=== PATIENT | female | born 1965 | race Two or more races ===

== ENCOUNTER 2017-04-12 21:06 | Inpatient (IN) | payer MEDICAID ==
[~2017-04-12] VITALS: Ht 157.5 cm; Wt 67.1 kg
[2017-04-12] MEDS ORDERED: METFORMIN HCL500 M1 ORAL (21:11)
[2017-04-12] MEDS ORDERED: Naproxen 500mg tab ORAL ONE (21:15)
--- NOTE | 2017-04-12 21:19 | Emergency Room Report ---
History of Present Illness General Chief Complaint: Fever Source: Patient Present Illness HPI Patient presents with fever chills body aches began at 1 PM. She also has a cough. She has not looked at her phlegm. She has chest pain when she is coughing. She is a headache at this time. There is no neck stiffness. She denies any vomiting or diarrhea. She does feel nauseated. The patient hasn't taken anything because she is allergic to Advil and Tylenol. She states that her face swells up when she takes Tylenol and Advil. She has had upper respiratory infections in the past. She is uncertain if she' s had pneumonia. No palpitations, vomiting, diarrhea, dysuria, abdominal pain, shortness of breath, depression, visual changes. Allergies: Coded Allergies: ACETAMINOPHEN (Verified Allergy, Unknown, 04/12/17) IBUPROFEN (Verified Allergy, Unknown, 04/12/17) Uncoded Allergies: PENICILLIN (Allergy, Unknown, 04/12/17) Patient History Past Medical History: see triage record Social History: Denies: smoking Social History Narrative at home Now: No Reviewed Nursing Documentation: PMH: Agreed, PSxH: Agreed Nursing Documentation-PMH Hx Asthma: Yes Hx Diabetes: Yes Review of Systems All Other Systems: negative except mentioned in HPI Physical Exam Vital Signs Date Time Temp Pulse Resp B/P Pulse Ox O2 Delivery O2 Flow Rate FiO2 04/12/17 21:04 103.3 158 16 157/78 96 Room Air Sp02 EP Interpretation: reviewed, normal General Appearance: no apparent distress, GCS 15, non-toxic, other - Hot Head: normocephalic Eyes: bilateral eye PERRL, bilateral eye normal inspection ENT: moist mucus membranes Neck: supple Respiratory: lungs clear, normal breath sounds Cardiovascular #1: regular rate, rhythm Cardiovascular #2: 2+ radial (R) Gastrointestinal: normal inspection, normal bowel sounds, non tender, no mass, non-distended Musculoskeletal: back normal, gait/station normal, normal range of motion Neurologic: alert, oriented x3, grossly normal Psychiatric: mood/affect normal Skin: other - plethoric and hot Medical Decision Making Diagnostic Impression: Primary Impression: Pneumonia Qualified Codes: J18.1 - Lobar pneumonia, unspecified organism Additional Impression: Diabetes Qualified Codes: E11.8 - Type 2 diabetes mellitus with unspecified complications ER Course Patient presents with fever and cough. Differential includes pneumonia, bronchitis, viral syndrome amongst others. Her lungs are clear at this time anteriorly. The beginning IV hydration. In addition to that she states she is allergic to Advil and Tylenol we will give her Naprosyn. Labs with leukocytosis and elevated glucose with normal lactic acid. The patient is somewhat improved at this time however she still tachycardic. X- ray reveals left lower lobe infiltrate. Antibiotics are begun. Glucose still high after bolus - insulin given. Patient improved and admitted med to Dr. Carey. Laboratory Tests Test 04/12/17 21:15 04/12/17 22:40 04/12/17 23:30 04/13/17 09:55 White Blood Count 14.2 K/UL (4.8-10.8) H 15.7 K/UL (4.8-10.8) H Red Blood Count 5.59 M/UL (4.20-5.40) H 4.59 M/UL (4.20-5.40) Hemoglobin 15.9 G/DL (12.0-16.0) 13.3 G/DL (12.0-16.0) Hematocrit 46.3 % (37.0-47.0) 37.6 % (37.0-47.0) Mean Corpuscular Volume 83 FL (80-99) 82 FL (80-99) Mean Corpuscular Hemoglobin 28.4 PG (27.0-31.0) 28.9 PG (27.0-31.0) Mean Corpuscular Hemoglobin Concent 34.3 G/DL (32.0-36.0) 35.3 G/DL (32.0-36.0) Red Cell Distribution Width 11.4 % (11.6-14.8) L 11.2 % (11.6-14.8) L Platelet Count 263 K/UL (150-450) 195 K/UL (150-450) Mean Platelet Volume 6.9 FL (6.5-10.1) 6.7 FL (6.5-10.1) Neutrophils (%) (Auto) 90.7 % (45.0-75.0) H 79.5 % (45.0-75.0) H Lymphocytes (%) (Auto) 5.1 % (20.0-45.0) L 14.8 % (20.0-45.0) L Monocytes (%) (Auto) 2.9 % (1.0-10.0) 4.6 % (1.0-10.0) Eosinophils (%) (Auto) 0.8 % (0.0-3.0) 0.5 % (0.0-3.0) Basophils (%) (Auto) 0.6 % (0.0-2.0) 0.6 % (0.0-2.0) Prothrombin Time 9.7 SEC (9.30-11.50) Prothrombin Time INR 0.9 (0.9-1.1) PTT 28 SEC (23-33) Sodium Level 134 mEQ/L (135-145) L Potassium Level 3.6 mEQ/L (3.4-4.9) Chloride Level 91 mEQ/L (98-107) L Carbon Dioxide Level 27 mEQ/L (20-30) Anion Gap 16 (5-15) H Blood Urea Nitrogen 15 mg/dL (7-23) Creatinine 0.7 mg/dL (0.5-0.9) Estimate Glomerular Filtration Rate > 60 mL/min (>60) Glucose Level 389 mg/dL (74-106) H Calcium Level 10.1 mg/dL (8.6-10.2) Total Bilirubin 0.5 mg/dL (0.0-1.2) Aspartate Amino Transferase (AST) 14 U/L (5-40) Alanine Aminotransferase (ALT) 20 U/L (3-33) Alkaline Phosphatase 113 U/L (35-104) H Total Creatine Kinase 63 U/L (26-140) Pro-B-Type Natriuretic Peptide 35 pg/mL (0-125) Total Protein 7.8 g/dL (6.6-8.7) Albumin 4.5 g/dL (3.5-5.2) Globulin 3.3 g/dL Albumin/Globulin Ratio 1.3 (1.0-2.7) Lactic Acid Level 1.00 mmol/L (0.66-2.22) Urine Color Yellow Urine Appearance Clear Urine pH 6 (4.5-8.0) Urine Specific [place] 1.010 (1.005-1.035) Urine Protein Negative (NEGATIVE) Urine Glucose (UA) 4+ (NEGATIVE) H Urine Ketones 2+ (NEGATIVE) H Urine Occult Blood Negative (NEGATIVE) Urine Nitrite Negative (NEGATIVE) Urine Bilirubin Negative (NEGATIVE) Urine Urobilinogen Normal MG/DL (0.0-1.0) Urine Leukocyte Esterase Negative (NEGATIVE) EKG Diagnostic Results Rate: tachycardiac ST Segments: no acute changes Rhythm Strip Diag. Results EP Interpretation: yes Rhythm: no PVC's, no ectopy, other - tachy HR 143 Chest X-Ray Diagnostic Results Chest X-Ray Diagnostic Results : Chest X-Ray Ordered: Yes # of Views/Limited/Complete: 1 View Indication: Other EP Interpretation: Yes Interpretation: no effusion, no pneumothorax, other - LLL infiltrate Impression: No acute disease Interpreting ER Provider: Electronically signed by Yonny Leon MD Last Vital Signs Date Time Temp Pulse Resp B/P Pulse Ox O2 Delivery O2 Flow Rate FiO2 04/13/17 18:16 97.7 04/13/17 16:00 91 20 137/70 Room Air 04/13/17 12:00 95 Status: improved Disposition: ADMITTED INPATIENT Condition: Serious Yonny Leon M.D. Apr 12, 2017 21:19
[2017-04-12 21:36] LABS: MEAN CORPUSCULAR HEMOGLOBIN 28.4 PG (27.0-31.0); MEAN CORPUSCULAR HGB CONC 34.3 G/DL (32.0-36.0); MEAN CORPUSCULAR VOLUME 83 FL (80-99); MEAN PLATELET VOLUME 6.9 FL (6.5-10.1); PLATELET COUNT 263 K/UL (150-450); RED BLOOD COUNT 5.59 M/UL (4.20-5.40); RED CELL DISTRIBUTION WIDTH 11.4 % (11.6-14.8); WHITE BLOOD COUNT 14.2 K/UL (4.8-10.8)
[2017-04-12 21:39] LABS: BASOPHILS % (AUTO) 0.6 % (0.0-2.0); EOSINOPHILS % (AUTO) 0.8 % (0.0-3.0); LYMPHOCYTES % (AUTO) 5.1 % (20.0-45.0); MONOCYTES % (AUTO) 2.9 % (1.0-10.0); NEUTROPHILS % (AUTO) 90.7 % (45.0-75.0)
[2017-04-12 21:44] LABS: INR 0.9 (0.9-1.1); PROTHROMBIN TIME 9.7 SEC (9.30-11.50)
[2017-04-12 21:45] VITALS: BP 157/78
[2017-04-12 22:07] LABS: ALANINE AMINOTRANSFERASE 20 U/L (3-33); ALBUMIN/GLOBULIN RATIO 1.3 (1.0-2.7); ANION GAP 16 (5-15); ASPARTATE AMINO TRANSFERASE 14 U/L (5-40); CALCIUM 10.1 mg/dL (8.6-10.2); CARBON DIOXIDE 27 mEQ/L (20-30); CHLORIDE 91 mEQ/L (98-107); CREATININE 0.7 mg/dL (0.5-0.9); GLOMERULAR FILTRATION RATE > 60 mL/min (>60); HEMOLYSIS 3; POTASSIUM 3.6 mEQ/L (3.4-4.9); SODIUM 134 mEQ/L (135-145); TOTAL PROTEIN 7.8 g/dL (6.6-8.7)
[2017-04-12] MEDS ORDERED: cefTRIAXone 1 GM in NS 55 ML IVPB ONE (22:30)
[2017-04-13 00:38] LABS: KETONES,URINE 2+ (NEGATIVE); LEUKOCYTE ESTERASE ,URINE NEGATIVE (NEGATIVE); NITRITE,URINE NEGATIVE (NEGATIVE); PH,URINE 6 (4.5-8.0); PROTEIN,URINE NEGATIVE (NEGATIVE); UROBILINOGEN,URINE NORMAL MG/DL (0.0-1.0)
[2017-04-13 00:39] LABS: APPEARANCE,URINE CLEAR
[2017-04-13 01:58] VITALS: BP 139/77
[2017-04-13 04:46] VITALS: BP 137/62
[2017-04-13] MEDS: NovoLOG Insulin Flexpen SUBQ SCH ×4 (06:30→21:03)
[2017-04-13 08:00] VITALS: BP 135/74
[2017-04-13] MEDS ORDERED: Zolpidem 5mg tab ORAL PRN (08:00)
[2017-04-13] MEDS ORDERED: DuoNeb 0.5-3(2.5)mg/3ml neb HHN PRN (08:00)
[2017-04-13] MEDS: Naproxen 500mg tab ORAL SCH ×2 (08:49→17:17)
[2017-04-13] MEDS: metFORMIN 500mg tab ORAL SCH ×2 (08:49→17:17)
[2017-04-13] MEDS: Heparin 5000 units/ml inj SUBQ SCH ×2 (08:50→21:03)
[2017-04-13] MEDS: Levofloxacin 500mg tab ORAL SCH (09:04)
--- NOTE | 2017-04-13 09:33 | History & Physical ---
History and Physical History & Physicial 52 year old female admitted with possible pneumonia and elevated WBC patient with some cough and congestion tactile fevers noted PMH Diabetes Asthma MEDS/ALLERGIES noted ROS noted PHYSICAL WDWN NAD some rhonchi noted [id number] without MRG NABS nontender no HSM no CCE nonfocal Laboratory Tests Test 04/12/17 21:15 04/12/17 22:40 04/12/17 23:30 White Blood Count 14.2 K/UL (4.8-10.8) H Red Blood Count 5.59 M/UL (4.20-5.40) H Hemoglobin 15.9 G/DL (12.0-16.0) Hematocrit 46.3 % (37.0-47.0) Mean Corpuscular Volume 83 FL (80-99) Mean Corpuscular Hemoglobin 28.4 PG (27.0-31.0) Mean Corpuscular Hemoglobin Concent 34.3 G/DL (32.0-36.0) Red Cell Distribution Width 11.4 % (11.6-14.8) L Platelet Count 263 K/UL (150-450) Mean Platelet Volume 6.9 FL (6.5-10.1) Neutrophils (%) (Auto) 90.7 % (45.0-75.0) H Lymphocytes (%) (Auto) 5.1 % (20.0-45.0) L Monocytes (%) (Auto) 2.9 % (1.0-10.0) Eosinophils (%) (Auto) 0.8 % (0.0-3.0) Basophils (%) (Auto) 0.6 % (0.0-2.0) Prothrombin Time 9.7 SEC (9.30-11.50) Prothromb Time International Ratio 0.9 (0.9-1.1) Activated Partial Thromboplast Time 28 SEC (23-33) Sodium Level 134 mEQ/L (135-145) L Potassium Level 3.6 mEQ/L (3.4-4.9) Chloride Level 91 mEQ/L (98-107) L Carbon Dioxide Level 27 mEQ/L (20-30) Anion Gap 16 (5-15) H Blood Urea Nitrogen 15 mg/dL (7-23) Creatinine 0.7 mg/dL (0.5-0.9) Estimat Glomerular Filtration Rate > 60 mL/min (>60) Glucose Level 389 mg/dL (74-106) H Calcium Level 10.1 mg/dL (8.6-10.2) Total Bilirubin 0.5 mg/dL (0.0-1.2) Aspartate Amino Transf (AST/SGOT) 14 U/L (5-40) Alanine Aminotransferase (ALT/SGPT) 20 U/L (3-33) Alkaline Phosphatase 113 U/L (35-104) H Total Creatine Kinase 63 U/L (26-140) Pro-B-Type Natriuretic Peptide 35 pg/mL (0-125) Total Protein 7.8 g/dL (6.6-8.7) Albumin 4.5 g/dL (3.5-5.2) Globulin 3.3 g/dL Albumin/Globulin Ratio 1.3 (1.0-2.7) Lactic Acid Level 1.00 mmol/L (0.66-2.22) Urine Color Yellow Urine Appearance Clear Urine pH 6 (4.5-8.0) Urine Specific [place] 1.010 (1.005-1.035) Urine Protein Negative (NEGATIVE) Urine Glucose (UA) 4+ (NEGATIVE) H Urine Ketones 2+ (NEGATIVE) H Urine Occult Blood Negative (NEGATIVE) Urine Nitrite Negative (NEGATIVE) Urine Bilirubin Negative (NEGATIVE) Urine Urobilinogen Normal MG/DL (0.0-1.0) Urine Leukocyte Esterase Negative (NEGATIVE) IMPRESSION pneumonia diabetes leukocytosis PLAN care noted IV antibiotics respiratory care oxygen follow up cxr dc on po antibiotics when stable DEIDRE PIEDRA Apr 13, 2017 09:33
[2017-04-13] MEDS: Vancomycin 750mg/D5W 275ml IVPB SCH ×4 (09:53→21:04)
[2017-04-13] MEDS: Solu-MEDROL 40mg Inj IVP SCH ×2 (10:46→21:03)
[2017-04-13 11:01] LABS: BASOPHILS % (AUTO) 0.6 % (0.0-2.0); EOSINOPHILS % (AUTO) 0.5 % (0.0-3.0); LYMPHOCYTES % (AUTO) 14.8 % (20.0-45.0); MEAN CORPUSCULAR HEMOGLOBIN 28.9 PG (27.0-31.0); MEAN CORPUSCULAR HGB CONC 35.3 G/DL (32.0-36.0); MEAN CORPUSCULAR VOLUME 82 FL (80-99); MEAN PLATELET VOLUME 6.7 FL (6.5-10.1); MONOCYTES % (AUTO) 4.6 % (1.0-10.0); NEUTROPHILS % (AUTO) 79.5 % (45.0-75.0); PLATELET COUNT 195 K/UL (150-450); RED BLOOD COUNT 4.59 M/UL (4.20-5.40); RED CELL DISTRIBUTION WIDTH 11.2 % (11.6-14.8); WHITE BLOOD COUNT 15.7 K/UL (4.8-10.8)
--- NOTE | 2017-04-13 11:02 | Diagnostic Imaging Report ---
Indication: Cough Technique: XRAY CHEST 1 V Comparison: None Findings: Cardiomediastinal silhouette is within normal limits. There is slight hazy appearance in the left base. There is no pneumothorax or pleural effusion. Degenerative changes of the spine are seen. Impression: Slight hazy appearance in the left base and subtle infiltrate may be considered. Clinical correlation/followup recommended.
[2017-04-13 12:00] VITALS: BP 149/84
[2017-04-13 16:00] VITALS: BP 137/70
[2017-04-13 20:00] VITALS: BP 160/92
[2017-04-14] VITALS: BP 168/57
[2017-04-14 04:00] VITALS: BP 176/62
[2017-04-14] MEDS: NovoLOG Insulin Flexpen SUBQ SCH ×2 (06:01→12:32)
[2017-04-14] MEDS ORDERED: Levothyroxine 25mcg tab ORAL SCH (06:30)
[2017-04-14] MEDS ORDERED: Morphine Sulfate 4mg/ml Inj IVP PRN ×2 (07:30→08:05)
[2017-04-14] MEDS ORDERED: Morphine Sulfate 2mg/ml Inj IVP PRN ×2 (07:30)
[2017-04-14] MEDS: Solu-MEDROL 40mg Inj IVP SCH (08:52)
[2017-04-14] MEDS: Naproxen 500mg tab ORAL SCH (08:52)
[2017-04-14] MEDS: Levofloxacin 500mg tab ORAL SCH (08:52)
[2017-04-14] MEDS: metFORMIN 500mg tab ORAL SCH (08:52)
[2017-04-14] MEDS: Heparin 5000 units/ml inj SUBQ SCH (08:53)
[2017-04-14 08:54] VITALS: BP 159/83
--- NOTE | 2017-04-14 10:05 | Diagnostic Imaging Report ---
Indication: Chest pain Technique: XRAY CHEST 1 V Comparison: 04/12/17 Findings: Cardiomediastinal silhouette is within normal limits. There is improved aeration of the lungs bilaterally without obvious consolidation or pleural effusion. Osseous structures are stable. Clips are seen of the neck. Impression: Improved aeration of the lungs bilaterally without obvious consolidation. No acute cardiopulmonary disease.
[2017-04-14] MEDS ORDERED: Tubing IV Secondary IV ONE (10:58)
[2017-04-14] MEDS ORDERED: Vancomycin 1gm in Dextrose 275ml IVPB SCH (11:00)
--- NOTE | 2017-04-14 11:31 | General Progress Note ---
Assessment/Plan Assessment/Plan IMPRESSION pneumonia diabetes leukocytosis PLAN care noted zpak medrol moira albuterol prn dc home follow up with pmd Subjective Allergies: Coded Allergies: ACETAMINOPHEN (Verified Allergy, Unknown, 04/12/17) IBUPROFEN (Verified Allergy, Unknown, 04/12/17) Uncoded Allergies: PENICILLIN (Allergy, Unknown, 04/12/17) Subjective improved Objective Last 24 Hour Vital Signs Date Time Temp Pulse Resp B/P Pulse Ox O2 Delivery O2 Flow Rate FiO2 04/14/17 08:54 97.7 105 18 159/83 95 Room Air 04/14/17 06:43 75 18 100 Room Air 21 04/14/17 06:40 72 18 Room Air 04/14/17 06:40 21 04/14/17 06:40 72 18 99 Room Air 21 04/14/17 04:00 97.7 82 18 176/62 97 Room Air 04/14/17 00:00 97.5 81 18 168/57 93 Room Air 04/13/17 20:00 97.5 76 20 160/92 93 Room Air 04/13/17 19:35 79 18 Room Air 04/13/17 18:16 97.7 04/13/17 16:00 97.7 91 20 137/70 Room Air 04/13/17 12:00 98.1 89 20 149/84 95 Room Air Intake and Output 04/13/17 04/14/17 19:00 07:00 Intake Total 1075 ml 240 ml Balance 1075 ml 240 ml Intake Oral 800 ml 240 ml IV Total 275 ml # Voids 3 2 # Bowel Movements 1 Laboratory Tests 04/14/17 09:30: Vancomycin Level Trough 5.2 Height (Feet): 5 Height (Inches): 2.00 Weight (Pounds): 148 Objective WDWN NAD improved with minimal rhonchi [id number] without MRG NABS nontender no HSM no CCE nonfocal DEIDRE PIEDRA Apr 14, 2017 11:31
--- NOTE | 2017-04-15 13:06 | Discharge Summary ---
Discharge Summary Hospital Course Date of Admission Apr 12, 2017 at 22:40 Date of Discharge Apr 14, 2017 at 12:58 Admitting Diagnosis pneumonia HPI Thais Murrieta is a 52 year old female who was admitted on Apr 12, 2017 at 22: 40 for Pneumonia Hospital Course dc summary #[id number] Discharge Condition Upon Discharge: stable Discharge Disposition Patient was discharged to Home (01) Discharge Diagnoses: Discharge Instructions Discharge Instructions Special Instructions I have been assigned to complete a D/C Summary on this account. I was not involved in the patient management Teofilo Javed)Loyda NP Apr 15, 2017 13:06
--- NOTE | 2017-04-15 23:45 | Discharge Summary 2 SIG ---
DATE OF ADMISSION: 04/12/2017 DATE OF DISCHARGE: 04/14/2017 REASON FOR ADMISSION: 52-year-old female with a history of diabetes and asthma, presented to emergency room with complaints of fever, chills, body aches, and cough. The patient reported chest pain while coughing. She had a headache, but no neck stiffness. She denied vomiting or diarrhea. She felt nauseous. Workup in the emergency room revealed fever - 103.3, tachycardia with heart rate -158, and leukocytosis with white blood count- 14.2. Chest x-ray revealed possible left lower lobe infiltrate. EKG revealed sinus tachycardia. Blood sugar - 389. Lactic acid - 1.0. Urinalysis was negative. Pro BNP - 35. Electrolytes and renal parameters were stable. The patient was started on empiric antibiotics after blood culture were drawn. Intravenous bolus was given for hyperglycemia, however, blood sugar remained high. Insulin was provided subsequently in ED. The patient was admitted for further management. ADMITTING DIAGNOSES: 1. Pneumonia. 2. Hyperglycemia with history of diabetes. 3. Leukocytosis. 4. History of asthma. HOSPITAL STAY: The patient was admitted. The patient was started on supplemental oxygen to keep saturation above 92%.and pulmonary toilet was provided as needed. The patient was started on IV antibiotics, unable to produce any sputum. Blood culture preliminary were negative. Followup chest x-ray demonstrated improved aeration of both lungs. Blood sugar was managed with the sliding scale of insulin, and was stable. The patient was on IV steroids, which were tapered . Fever resolved. Still with some leukocytosis. Respiratory status improved. Pulse oximetry stable on room air, clinically improved. Tachycardia resolved. The patient was stable for discharge home. DISCHARGE DIAGNOSES: 1. Pneumonia. 2. Diabetes. 3. Leukocytosis. 4. Asthma. DISCHARGE MEDICATIONS: Prescription provided. DISCHARGE INSTRUCTIONS: The patient to follow up with the primary medical doctor. The patient needs optimization of anti-glycemic regimen on outpatient basis. The patient was stable for discharge. Thomas Carey M.D. I have been assigned to dictate discharge summary on this account and I was not involved in the patient's management. Loyda Red N.P. (Vanchtein) DR: WOJCIECH JOB#: [id number] CC: KORINA
--- NOTE | 2017-04-17 17:21 | Cardiology Report ---
APPROVED REPORT EKG Measurement Heart [id number] CT 104P [id number] Sinus tachycardia with short CT with occasional premature ventricular complexes Otherwise normal ECG
== END 2017-04-14 12:58 | disposition home or self-care (01) | DRG 139 ==
LOC: EDBD 21:06 → EMR 21:30 → 3E 22:40 → EDBEDREQ 23:05
DX: J18.9 Pneumonia, unspecified organism (principal); E11.65 Type 2 diabetes mellitus with hyperglycemia; J45.909 Unspecified asthma, uncomplicated
CPT/HCPCS: 36415; 71010; 80053; 80202; 81003; 82550; 82962; 83605; 83880; 85025; 85610; 85730; 87040; 93005; 94640; 94664; J1815; J7620